=== PATIENT | male | born 1970 | race Hispanic/Latino ===

== ENCOUNTER 2018-10-01 11:39 | Emergency (ER) | payer OTHER ==
[~2018-10-01] VITALS: Ht 167.6 cm; Wt 79.4 kg
[2018-10-01 12:34] LABS: BASOPHILS # (AUTO) 0.1 (0.0-0.1); BASOPHILS % 1.3 % (0.0-1.0); EOSINOPHILS # (AUTO) 0.2 (0.0-0.4); EOSINOPHILS % 3.4 % (0.0-6.0); HEMATOCRIT 44.2 % (38.2-49.6); HEMOGLOBIN 15.3 g/dL (14.0-18.0); LYMPHOCYTES # (AUTO) 2.1 (1.0-3.2); LYMPHOCYTES % 30.2 % (18.0-39.1); MEAN CORPUSCULAR HEMOGLOBIN 30.5 pg (28-32); MEAN CORPUSCULAR HGB CONC 34.6 g/dL (31-35); MEAN CORPUSCULAR VOLUME 88.2 fL (81-99); MONOCYTES # (AUTO) 0.7 (0.2-0.8); MONOCYTES % 9.4 % (4.4-11.3); NEUTROPHILS # (AUTO) 3.9 (2.1-6.9); NEUTROPHILS % 55.3 % (38.7-80.0); PLATELET COUNT 313 x10e3/uL (140-360); RED BLOOD COUNT 5.01 x10e6/uL (4.3-5.7); RED CELL DISTRIBUTION WIDTH 13.1 % (11.7-14.4)
[2018-10-01 12:40] LABS: INR 0.86; PROTHROMBIN TIME 12.5 seconds (11.9-14.5)
[2018-10-01 12:41] LABS: PARTIAL THROMBOPLASTIN TIME 31.3 seconds (23.8-35.5)
[2018-10-01 12:48] LABS: ALANINE AMINOTRANSFERASE 24 IU/L (0-55); ALBUMIN 3.8 g/dL (3.5-5.0); ALBUMIN/GLOBULIN RATIO 1.3 (0.8-2.0); ALKALINE PHOSPHATASE 80 IU/L (40-150); ANION GAP 11.7 mmol/L (8-16); BLOOD UREA NITROGEN 25 mg/dL (7-26); BUN/CREATININE RATIO 27 (6-25); CALCIUM 9.4 mg/dL (8.4-10.2); CARBON DIOXIDE 27 mmol/L (22-29); CHLORIDE 104 mmol/L (98-107); CREATINE KINASE 71 IU/L (30-200); CREATININE, SERUM 0.92 mg/dL (0.72-1.25); EST GLOMERULAR FILTRATION RATE > 60 ML/MIN (60-); GLUCOSE 92 mg/dL (74-118); POTASSIUM 3.7 mmol/L (3.5-5.1); SODIUM 139 mmol/L (136-145)
[2018-10-01 12:57] LABS: STREPTOCOCCUS GRP A ANTIGEN NEGATIVE (NEGATIVE)
--- NOTE | 2018-10-01 12:58 | Diagnostic Imaging Report ---
EXAM: CHEST 2 VIEWS, PA and lateral DATE: 10/01/2018 11:58 AM Time stamp on exam: 12:09 PM INDICATION: Chest pain COMPARISON: None FINDINGS: LINES/TUBES: None LUNGS: No consolidations or edema. There is a calcified right middle lobe granuloma. PLEURA: No effusions or pneumothorax. HEART AND MEDIASTINUM: Normal size and contour. At the thoracic inlet the trachea appears deviated to the left. This suggests thyroid enlargement/mass versus artifact of the neck rotated. Correlation with the clinical exam is necessary. BONES AND SOFT TISSUES: No acute findings. IMPRESSION: 1. No acute thoracic abnormality. 2. Tracheal deviation to the left. Signed by: Dr. Khalif Goncalves DO on 10/01/2018 12:55 PM
[2018-10-01 13:02] LABS: INFLUENZAE A&B ANTIGEN (RAPID) POSITIVE FLU A (NEGATIVE)
--- NOTE | 2018-10-01 14:26 | Diagnostic Imaging Report ---
Radiographs of the neck soft tissues - 2 views HISTORY: Difficulty breathing COMPARISON: Chest radiograph 10/01/2018. FINDINGS: Bones: No acute displaced fracture. Osseous alignment is within normal limits. Joints: Scattered degenerative change. No osseous erosion. Soft tissues: The soft tissues appear unremarkable. IMPRESSION: No acute radiographic abnormality. No tracheal deviation is seen. Signed by: Dr. Yazan Dubon M.D. on 10/01/2018 2:22 PM
== END 2018-10-01 14:40 | disposition home or self-care (01) ==
LOC: ER 11:39
DX: R07.89 Other chest pain (principal); R05 Cough; J11.1 Influenza due to unidentified influenza virus with other respiratory manifestations; H61.21 Impacted cerumen, right ear
CPT/HCPCS: 36415; 70360; 71046; 80053; 82550; 82553; 83518; 84484; 85025; 85379; 85610; 85730; 87070; 87400; 93005; 99284